=== PATIENT | male | born 1995 | race Caucasian/White ===

== ENCOUNTER 2024-08-09 18:55 | Emergency (ER) | payer SELFPAY ==
[~2024-08-09 18:55] MED LIST: Iopamidol 300 61% 100 ML VIAL FS ONE
[2024-08-09 20:25] LABS: #Basophils 0.02 10x3/uL (0.0-0.2); #Eosinphils 0.04 10x3/uL (0.0-0.5); %Basophils 0.3 % (0.0-2.0); %Eosinophils 0.6 % (0.0-6.0); %Lymphocytes 41.3 % (18.0-47.0); %Monocytes 5.9 % (0.0-10.0); %Neutrophils 51.8 % (40.0-75.0); Hemoglobin 15.4 g/dL (13.5-17.5); Mean Corpuscular Hemoglobin 30.7 pg (27.0-33.0); Mean Corpuscular Volume 87.6 fL (81.2-95.1); Mean Platelet Volume 9.1 fL (7.4-10.4); Platelet Count 262 10x3/uL (150-450); RBC Distribution Width 12.3 % (11.5-14.5); Red Blood Cell (RBC) Count 5.02 10x6/uL (4.32-5.72); White Blood Cell (WBC) Count 6.8 10x3/uL (3.5-10.5)
[2024-08-09 20:36] LABS: ALT (SGPT) 21 U/L (8-55); AST (SGOT) 31 U/L (5-34); Albumin 4.7 g/dL (3.5-5.0); Alkaline Phosphatase 70 U/L (40-110); Anion Gap 13 mmol/L (10-20); BUN (Urea Nitrogen) 18 mg/dL (8.9-20.6); Calc. Creatinine Clearance 0 mL/min (70-130); Calcium 9.5 mg/dL (7.8-10.44); Carbon Dioxide 26 mmol/L (22-29); Chloride 105 mmol/L (98-107); Estimated GFR 91; Globulin 2.5 g/dL (2.4-3.5); Glucose 89 mg/dL (70-105); Lipase 43 U/L (8-78); Magnesium 1.9 mg/dL (1.6-2.6); Potassium 3.7 mmol/L (3.5-5.1); Protein, Total 7.2 g/dL (6.0-8.3); Sodium 140 mmol/L (136-145)
[2024-08-09 20:43] LABS: Troponin I Less than 0.010 ng/mL (< 0.028)
[2024-08-09] MEDS ORDERED: Pantoprazole 40 MG VIAL ONE (20:55)
[2024-08-11 06:42] LABS: Campy jejuni + coli by PCR Negative (Negative); STEC Shiga Toxin 1+2 Negative (Negative); Salmonella spp. by PCR Negative (Negative); Shigella spp + EIEC by PCR Negative (Negative)
== END 2024-08-09 21:35 | disposition home or self-care (01) ==
LOC: CSHERS 18:55
DX: R10.13 Epigastric pain (principal); R19.7 Diarrhea, unspecified
CPT/HCPCS: 71045; 74177; 80053; 83690; 83735; 84484; 85025; 87324; 87449; 87505; 93005; 96374; J2470; Q9967